=== PATIENT | female | born 1980 | race Caucasian/White ===

== ENCOUNTER 2022-06-15 14:51 | Outpatient (CLI) | payer BC, SELFPAY ==
--- NOTE | 2022-06-15 15:20 | CRLHL7_ITS ---
For Patients: As a result of the Cures Act, medical imaging exams and procedure reports are released immediately into your electronic medical record. You may view this report before your referring provider. If you have questions, please contact your health care provider. BILATERAL SCREENING MAMMOGRAM WITH COMPUTER-AIDED DETECTION AND TOMOSYNTHESIS TECHNIQUE: CC and MLO views were obtained. These mammographic images have been obtained using full-field digital technique. These mammographic images were interpreted with the benefit of computer-aided detection. Breast tomosynthesis was used in this interpretation. COMPARISON FILM: None. This is a baseline study. FINDINGS: The breasts are extremely dense, which lowers the sensitivity of mammography. IMPRESSION: There is no radiographic evidence for malignancy. ASSESSMENT: BI-RADS Category 2: Benign RECOMMENDATION: Routine screening mammogram in 1 year. A lay language report of this examination will be provided to the patient. JARVIS PATEL M.D. Diagnostic Radiologist [email or web address] VENKATA/antionette Transcribed: 06/17/2022, 10:[address]/Dictated by: Jarvis Patel MD @ 06/16/2022 12:59:00 PM (Electronically Signed)
== END 2022-06-15 14:52 | disposition home or self-care (01) ==
LOC: MAMMO 14:52
PROVIDERS: Visit Provider Physician Assistant
DX: Z12.31 Encounter for screening mammogram for malignant neoplasm of breast (principal); R92.2 Inconclusive mammogram
CPT/HCPCS: 77063; 77067

== ENCOUNTER 2022-12-15 09:57 | Outpatient (CLI) | payer BC, SELFPAY ==
--- NOTE | 2022-12-15 10:15 | CRLHL7_ITS ---
For Patients: As a result of the Century Cures Act, medical imaging exams and procedure reports are released immediately into your electronic medical record. You may view this report before your referring provider. If you have questions, please contact your health care provider. Indication: Left axillary pain Technique: Grayscale and color Doppler ultrasound of the left axilla performed. Comparison: Mammogram 06/15/2022 Findings: Normal left axillary lymph nodes are present with normal internal vascularity and central fatty marcelo. No cortical thickening. Lymph nodes measure 2.0 x 0.9 x 1.3 cm and 2.2 x 0.8 x 1.3 cm. Impression: Normal left axillary lymph nodes. No suspicious findings. Dictated by Jarvis Rosas MD @ 12/15/2022 12:56:40 PM (Electronically Signed)
== END 2022-12-15 09:58 | disposition home or self-care (01) ==
LOC: US 09:58
PROVIDERS: Visit Provider Physician Assistant Medical
DX: M79.622 Pain in left upper arm (principal)
CPT/HCPCS: 76882

== ENCOUNTER 2022-12-30 10:00 | Outpatient (CLI) | payer BC, SELFPAY | END 2022-12-30 10:01 | disposition home or self-care (01) | PROVIDERS: Visit Provider Physician Assistant Medical | DX: Z00.00 Encounter for general adult medical examination without abnormal findings (principal); E78.1 Pure hyperglyceridemia; R70.0 Elevated erythrocyte sedimentation rate | CPT/HCPCS: 80061; 85651 ==

== ENCOUNTER 2023-04-12 10:57 | Outpatient (CLI) | payer BC, SELFPAY | END 2023-04-12 10:58 | disposition home or self-care (01) | PROVIDERS: PCP Physician Assistant; Visit Provider Physician Assistant | DX: E78.1 Pure hyperglyceridemia (principal); Z13.1 Encounter for screening for diabetes mellitus | CPT/HCPCS: 80061; 82947 ==

== ENCOUNTER 2023-04-19 10:18 | Outpatient (CLI) | payer BC, SELFPAY ==
--- NOTE | 2023-04-19 10:45 | MM_ITS ---
INDICATION: LEFT BREAST LUMP. COMPARISON: 06/15/2022, 12/15/2022. TECHNIQUE: 3D ML/MLO BILATERAL MAMMOGRAM IMAGES SUBMITTED ALONG WITH TARGETED LEFT BREAST ULTRASOUND. FINDINGS: MAMMOGRAM IMAGES DEMONSTRATE NORMAL AXILLARY LYMPH NODES, UNCHANGED FROM THE PRIOR STUDY. NO SUSPICIOUS MASS OR ARCHITECTURAL DISTORTION. NO SUSPICIOUS CALCIFICATIONS. TARGETED LEFT BREAST ULTRASOUND PERFORMED IN THE LEFT AXILLA. NORMAL LEFT AXILLARY LYMPH NODES ARE PRESENT WITH NORMAL CENTRAL FATTY JOSEPH. NORMAL INTERNAL VASCULARITY. NO CORTICAL THICKENING. FINDINGS ARE SIMILAR TO THE PRIOR EXAM. IMPRESSION: NO SUSPICIOUS FINDINGS. NO EVIDENCE OF MALIGNANCY. BI-RADS CATEGORY 2. BENIGN. RECOMMENDATIONS: ROUTINE ANNUAL BILATERAL SCREENING MAMMOGRAPHY.
== END 2023-04-19 10:19 | disposition home or self-care (01) ==
LOC: MAMMO 10:18
PROVIDERS: Visit Provider Physician Assistant
DX: N63.20 Unspecified lump in the left breast, unspecified quadrant (principal); R22.30 Localized swelling, mass and lump, unspecified upper limb
CPT/HCPCS: 76642; 77066; G0279

== ENCOUNTER 2024-05-08 09:57 | Outpatient (CLI) | payer BC, SELFPAY | END 2024-05-08 09:58 | disposition home or self-care (01) | PROVIDERS: Visit Provider Physician Assistant Medical | DX: Z12.31 Encounter for screening mammogram for malignant neoplasm of breast (principal); R92.333 Mammographic heterogeneous density, bilateral breasts | CPT/HCPCS: 77063; 77067 ==